=== PATIENT | male | born 1955 | race Caucasian/White ===

== ENCOUNTER 2022-12-04 10:57 | Day surgery (SDC) | payer MEDICARE, BC ==
[~2022-12-04 10:57] MED LIST: Lactated Ringers 1,000 ML IV SCH
[2022-12-04] MEDS ORDERED: Propofol 200 MG/20 ML SDV ONE ×2 (12:44→13:16)
== END 2022-12-04 14:05 | disposition home or self-care (01) ==
LOC: MW.SDS 10:57
PROVIDERS: ATTEND Surgery
DX: Z12.11 Encounter for screening for malignant neoplasm of colon (principal); K57.30 Diverticulosis of large intestine without perforation or abscess without bleeding; K64.8 Other hemorrhoids; F41.9 Anxiety disorder, unspecified; M25.571 Pain in right ankle and joints of right foot; M25.572 Pain in left ankle and joints of left foot; G89.29 Other chronic pain; F33.1 Major depressive disorder, recurrent, moderate; E11.42 Type 2 diabetes mellitus with diabetic polyneuropathy; E78.00 Pure hypercholesterolemia, unspecified; I10 Essential (primary) hypertension; F42.9 Obsessive-compulsive disorder, unspecified; G62.9 Polyneuropathy, unspecified; G47.33 Obstructive sleep apnea (adult) (pediatric); M19.90 Unspecified osteoarthritis, unspecified site; Z86.16 Personal history of COVID-19; Z79.899 Other long term (current) drug therapy; Z79.84 Long term (current) use of oral hypoglycemic drugs; Z98.890 Other specified postprocedural states
CPT/HCPCS: 82947; J2704; J7120